=== PATIENT | male | born 1965 | race Caucasian/White ===

== ENCOUNTER 2017-10-26 22:25 | Inpatient (IN) | payer MEDICAID ==
[~2017-10-26] VITALS: Ht 167.6 cm; Wt 80.0 kg
--- NOTE | ~2017-10-26 | CON ---
[place], [place] REPORT OF CONSULTATION NAME: SARAH MULTANI UNIT #: [id number] ROOM: 520 DOCTOR: RENE ENGEL MD BIRTHDATE: [birth year] DOS: 10/27/2017 REASON FOR CONSULTATION: Chest pain. HISTORY OF PRESENT ILLNESS: The patient is a 52-year-old man who states that he has had a long history of recurrent chest pain. He states that the pain "comes and goes." It is sharp and located in his left anterior chest. There is nothing much that he does that makes it better or worse, although he does note that he has been more dyspneic with exertion lately. The patient does have a history of multiple drug abuse. He did drink alcohol in the distant past, but has not done so recently. He has used cocaine in the past as well, but again states that it has been years. He does admit that he snorts heroin and has done this frequently. He has been hospitalized for heroin withdrawal on at least one occasion. The patient states that he has been hospitalized for myocardial infarctions in the past. We were able to get records from the [facility] in [place], [place], where he underwent catheterization on 09/30/2012 and 07/26/2015. The catheterization in 09/2012 showed an ejection fraction of 40%. 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 His left main, circumflex and right coronary arteries were all normal. The LAD had a 20% stenosis. He did have mitral valve prolapse, but no mitral insufficiency. It was felt that he did not have significant coronary artery disease. The catheterization done 07/26/2015 showed a normal left main, circumflex and right coronary artery. He was felt to have very mild LAD disease. The distal circumflex had a 40% stenosis. His ejection fraction was 70%. Once again, it was felt that he did not have a hemodynamically significant coronary artery disease, although I do not have the records, they do mention in their records, a stress test done about a year ago that was "normal." The patient states that yesterday while at rest, he did have severe left anterior chest pain, which was worse than it usually is. It was associated with dyspnea, palpitations, diaphoresis and weakness and therefore, he came into the Emergency Room. Since he has been in the Emergency Room and in the hospital, he has continued to have chest pain, but his electrocardiograms have shown no acute changes. He has sinus rhythm with PACs, but no other acute abnormalities. Troponin levels are measurable but still within normal limits. He refused nitroglycerin because he states that it causes him to have headaches and nausea. He was given morphine IV in the Emergency Room along with 5 mg of IV metoprolol and 1 mg of IV Ativan with some improvement. PAST MEDICAL HISTORY: Includes: 1. Heroin abuse. 2. Remote history of cocaine abuse. 3. Hypertension. 4. Chronic renal insufficiency in the past. The patient denies any history of diabetes or stroke. [place], [place] REPORT OF CONSULTATION NAME: SARAH MULTANI UNIT #: [id number] ROOM: [facility] DOCTOR: RENE ENGEL MD BIRTHDATE: [birth year] MEDICATIONS PRIOR TO ADMISSION: Aspirin 81 mg daily, lorazepam 2 mg b.i.d., metoprolol succinate, unknown dose daily and valsartan, unknown dose daily. ALLERGIES: The patient lists an allergy to nitroglycerin, which causes headache and nausea. REVIEW OF SYSTEMS: The patient denies diplopia or loss of vision. He denies syncope, but he has been lightheaded. He denies fevers or chills. He denies vomiting or nausea. He denies orthopnea or PND. He has had dyspnea with exertion. He does get palpitations and diaphoresis. He denies any recent weight change. He denies hemoptysis or hematemesis. He has had abdominal cramping with bright red blood per rectum. He denies any peripheral edema. He denies heat or cold intolerance. He denies polyuria or polydipsia. Remainder of the review of systems is negative except as noted above. FAMILY HISTORY: The patient's father had diabetes and a heart attack. He at an unknown age. His mother had also diabetes and heart attack and at age 70. SOCIAL HISTORY: The patient recently moved here from [place] to be with his girlfriend. He states that he does not currently drink alcohol or smoke, but he does use heroin. PHYSICAL EXAMINATION: GENERAL: The patient is well-nourished white male. He is awake, alert and oriented. VITAL SIGNS: Pulse is 83 and regular, blood pressure is 178/120. He is afebrile. He weighs 80 kg and has a body mass index 28.5. HEENT: Normocephalic and atraumatic. Extraocular muscles are intact. Sclerae are clear. Pupils equal, round and react to light. The oral mucosa is moist. Tongue is midline. NECK: Supple. He has no jugular distention. Carotids are full. I heard no bruits. He had no neck or supraclavicular masses, no thyromegaly. LUNGS: Respirations are unlabored. CHEST: Clear to auscultation and percussion. She has no presacral edema or chest wall tenderness. CARDIOVASCULAR: His heart has a regular rhythm. He has a fourth heart sound, but no third heart sound or murmur. The PMI is not displaced. There is no precordial heave, lift or thrill. I could not reproduce his pain by palpation of his chest. ABDOMEN: Soft and normally active without masses, organomegaly, bruits or tenderness. EXTREMITIES: Showed no edema. He had no palpable cords or [place] sign. Pedal pulses were easily palpated bilaterally. IMAGING: I reviewed his electrocardiogram, which showed sinus rhythm with PACs and was an otherwise normal tracing. IMPRESSION: [place], [place] REPORT OF CONSULTATION NAME: SARAH MULTANI UNIT #: [id number] ROOM: [facility] DOCTOR: RENE ENGEL MD BIRTHDATE: [birth year] 1. Atypical chest pain. Review of available records indicates that he has had a long history of chest pain, but 2 previous catheterizations have shown no significant coronary artery disease. 2. Essential hypertension. 3. History of heroin abuse and hospitalizations for heroin withdrawal. 4. History of anxiety with panic attacks. PLAN: At this point, I think we should start him on beta sha in addition to the other medicines that have been prescribed to control his blood pressure. We will continue to monitor his electrocardiogram and cardiac biomarkers. Assuming no problems overnight, I would proceed with a pharmacologic stress test within the next 24 hours. Further recommendations will depend upon the results of the stress test. [facility] Cardiology and I thank the hospitalist physicians for asking our advice regarding his care. RENE ENGEL MD CM:CONSTR:REPORT OF CONSULTATION 1122 10/27/17 2259 interface
[2017-10-26 22:25] VITALS: BP 182/132
[2017-10-26] MEDS ORDERED: ATIVAN2 M1 PO (22:30)
[2017-10-26] MEDS ORDERED: TOPROL XL25 MG PO (22:30)
[2017-10-26] MEDS ORDERED: DIOVAN40 MG PO (22:31)
[2017-10-26] MEDS ORDERED: ASPIRIN ADULT L81 M1 PO (22:31)
[2017-10-26 22:40] VITALS: BP 172/127
[2017-10-26 22:44] VITALS: BP 162/95
[2017-10-26 22:50] VITALS: BP 148/106
[2017-10-26 22:53] LABS: ACT PARTIAL THROMBO TIME 21.9 SECONDS (20.8-31.5)
[2017-10-26 23:00] VITALS: BP 132/82
[2017-10-26 23:01] LABS: ALBUMIN 3.3 gm/dl (3.1-4.5); ALKALINE PHOSPHATASE 87 U/L (45-117); BUN 23 mg/dl (7-24); CHLORIDE 105 mmol/L (98-107); CREATININE 1.38 mg/dL (0.70-1.30); POTASSIUM 3.4 mmol/L (3.5-5.1); SGOT/AST 33 IU/L (3-35); SGPT/ALT 27 U/L (12-78); SODIUM 144 mmol/L (136-145); TOTAL PROTEIN 6.9 gm/dL (6.4-8.2)
[2017-10-26 23:02] LABS: BASO # 0.1 10*3/uL (0.0-0.1); BASO % 0.7 % (0.0-1.0); EOS # 0.1 10*3/uL (0.0-0.4); EOS % 1.5 % (1.0-4.0); HEMATOCRIT 40.3 % (42.0-52.0); HEMOGLOBIN 13.8 g/dl (14.0-18.0); LYMPH # 1.9 10*3/uL (1.3-4.4); LYMPH % 28.1 % (27.0-41.0); MEAN CELL VOLUME 93.1 fl (80.0-94.0); MEAN CORPUSCULAR HGB 31.9 pg (27.0-31.0); MEAN CORPUSCULAR HGB CONC 34.2 g/dl (33.0-37.0); MEAN PLATELET VOLUME 11.5 fl (9.6-12.3); MONO # 0.5 10*3/uL (0.1-1.0); NEUT # 4.2 10*3/uL (2.3-7.9); NEUT % 62.4 % (47.0-73.0); PLATELET COUNT AUTOMATED 215 10*3/uL (130-400); RED BLOOD COUNT 4.33 10*6/uL (4.50-5.90); RED CELL DISTRI WIDTH 13.2 % (0-14.5); TROPONIN I 0.023 ng/ml (<0.045); WHITE BLOOD COUNT 6.7 10*3/uL (4.8-10.8)
[2017-10-26 23:18] LABS: BILIRUBIN NEGATIVE (NEGATIVE); BLOOD NEGATIVE (NEGATIVE); CLARITY CLEAR (CLEAR); COLOR YELLOW (YELLOW); GLUCOSE NEGATIVE (NEGATIVE); KETONE NEGATIVE (NEGATIVE); LEUKO ESTERASE NEGATIVE (NEGATIVE); NITRITE NEGATIVE (NEGATIVE); PH 6.5 (5.0-9.0); UROBILINOGEN 0.2 E.U./dl (0.2-1.0)
[2017-10-26 23:27] LABS: URINE AMPHETAMINES < 1000 (1000ng/ml); URINE BARBITURATES < 200 (200ng/ml); URINE BENZODIAZEPINES < 200 (200ng/ml); URINE CANNABINOIDS (THC) < 50 (50ng/ml); URINE COCAINE < 300 (300ng/ml); URINE METHADONE < 300 (300ng/ml); URINE OPIATES < 300 (300ng/ml); URINE PHENCYCLIDINE < 25 (25ng/ml)
[2017-10-26 23:29] LABS: BACTERIA TRACE; WBC 0-2 wbc/hpf (0-5)
[2017-10-26 23:50] VITALS: BP 179/105
[2017-10-27] VITALS (11 sets, daily range): BP systolic 135–180; BP diastolic 88–122
[2017-10-27 05:13] LABS: ALBUMIN 3.5 gm/dl (3.1-4.5); ALKALINE PHOSPHATASE 96 U/L (45-117); BUN 20 mg/dl (7-24); CHLORIDE 105 mmol/L (98-107); CHOLESTEROL 177 mg/dL (<200); CREATININE 1.14 mg/dL (0.70-1.30); FREE T4 0.83 ng/dl (0.76-1.46); HDL CHOLESTEROL 48 mg/dl (40-60); LDL CHOLESTEROL 104 mg/dL (9-159); PHOSPHOROUS 2.1 mg/dL (2.5-4.9); SGOT/AST 25 IU/L (3-35); SGPT/ALT 27 U/L (12-78); SODIUM 141 mmol/L (136-145); TOTAL PROTEIN 6.9 gm/dL (6.4-8.2); TRIGLYCERIDES 123 mg/dl (<150); VLDL CHOLESTEROL 25 mg/dL (6-40)
[2017-10-27 05:19] LABS: THYROID STIM HORMONE (HS) 0.884 uIU/ml (0.358-4.75)
[2017-10-27 06:16] LABS: BASO # 0.1 10*3/uL (0.0-0.1); BASO % 0.8 % (0.0-1.0); EOS # 0.1 10*3/uL (0.0-0.4); EOS % 2.1 % (1.0-4.0); HEMATOCRIT 41.5 % (42.0-52.0); HEMOGLOBIN 14.2 g/dl (14.0-18.0); LYMPH # 1.9 10*3/uL (1.3-4.4); LYMPH % 28.6 % (27.0-41.0); MEAN CELL VOLUME 93.3 fl (80.0-94.0); MEAN CORPUSCULAR HGB 31.9 pg (27.0-31.0); MEAN CORPUSCULAR HGB CONC 34.2 g/dl (33.0-37.0); MEAN PLATELET VOLUME 11.7 fl (9.6-12.3); MONO # 0.5 10*3/uL (0.1-1.0); MONO % 6.8 % (3.0-9.0); NEUT # 4.1 10*3/uL (2.3-7.9); NEUT % 61.1 % (47.0-73.0); PLATELET COUNT AUTOMATED 210 10*3/uL (130-400); RED BLOOD COUNT 4.45 10*6/uL (4.50-5.90); RED CELL DISTRI WIDTH 13.2 % (0-14.5); WHITE BLOOD COUNT 6.6 10*3/uL (4.8-10.8)
[2017-10-27 09:59] LABS: VITAMIN D, 25-HYDROXY 25.2 ng/mL (30-100)
[2017-10-28] VITALS: BP 150/100
[2017-10-28 07:11] LABS: BUN 14 mg/dl (7-24); CHLORIDE 112 mmol/L (98-107); CREATININE 1.09 mg/dL (0.70-1.30); PHOSPHOROUS 2.2 mg/dL (2.5-4.9); POTASSIUM 3.6 mmol/L (3.5-5.1); SODIUM 141 mmol/L (136-145)
[2017-10-28 08:00] VITALS: BP 141/93
== END 2017-10-28 08:37 | disposition left against medical advice (07) | DRG 313 ==
LOC: ED 22:25 → 5E 23:21 → EDHOLD 23:21 → 5E 23:31
PROVIDERS: Emergency Medicine Emergency Medical Services; Internal Medicine; Internal Medicine Hospice and Palliative Medicine
DX: R07.9 Chest pain, unspecified (principal); I25.2 Old myocardial infarction; N17.0 Acute kidney failure with tubular necrosis; I16.1 Hypertensive emergency; R29.6 Repeated falls; E87.6 Hypokalemia; R80.9 Proteinuria, unspecified; E78.5 Hyperlipidemia, unspecified; N18.9 Chronic kidney disease, unspecified; R73.03 Prediabetes; M19.90 Unspecified osteoarthritis, unspecified site; F41.9 Anxiety disorder, unspecified; F41.0 Panic disorder [episodic paroxysmal anxiety]; F11.10 Opioid abuse, uncomplicated; I12.9 Hypertensive chronic kidney disease with stage 1 through stage 4 chronic kidney disease, or unspecified chronic kidney disease; E83.39 Other disorders of phosphorus metabolism; R73.9 Hyperglycemia, unspecified; D64.9 Anemia, unspecified; Z53.21 Procedure and treatment not carried out due to patient leaving prior to being seen by health care provider; E78.00 Pure hypercholesterolemia, unspecified; Z88.8 Allergy status to other drugs, medicaments and biological substances; Z79.899 Other long term (current) drug therapy; Z79.82 Long term (current) use of aspirin; Z90.49 Acquired absence of other specified parts of digestive tract; Z86.711 Personal history of pulmonary embolism; Z82.49 Family history of ischemic heart disease and other diseases of the circulatory system; Z83.3 Family history of diabetes mellitus

== ENCOUNTER 2017-11-08 13:13 | Emergency (ER) | payer MEDICAID ==
[~2017-11-08] VITALS: Ht 167.6 cm; Wt 81.6 kg
[~2017-11-08 13:13] MED LIST: ASPIRIN ADULT L81 M1 PO; ATIVAN2 M1 PO; DIOVAN40 MG PO; TOPROL XL25 MG PO
== END 2017-11-08 14:27 | disposition left against medical advice (07) ==
LOC: ED 13:13
DX: S49.92XA Unspecified injury of left shoulder and upper arm, initial encounter (principal); Z53.21 Procedure and treatment not carried out due to patient leaving prior to being seen by health care provider; Z88.8 Allergy status to other drugs, medicaments and biological substances; Z79.899 Other long term (current) drug therapy; Z79.82 Long term (current) use of aspirin; X58.XXXA Exposure to other specified factors, initial encounter; Y93.89 Activity, other specified; Y92.89 Other specified places as the place of occurrence of the external cause; Y99.8 Other external cause status

== ENCOUNTER 2017-11-12 11:01 | Emergency (ER) | payer MEDICAID ==
[~2017-11-12] VITALS: Ht 167.6 cm; Wt 81.6 kg
[2017-11-12] MEDS ORDERED: LOPRESSOR50 M1 PO (12:41)
[2017-11-12] MEDS ORDERED: DIOVAN40 MG PO (12:41)
[2017-11-12] MEDS ORDERED: ATIVAN1 MG PO (12:44)
[2017-11-12] MEDS ORDERED: NORCO 7.5-3251 EACH PO (12:44)
== END 2017-11-12 14:11 | disposition home or self-care (01) ==
LOC: ED 11:01
DX: S46.912A Strain of unspecified muscle, fascia and tendon at shoulder and upper arm level, left arm, initial encounter (principal); F41.9 Anxiety disorder, unspecified; I10 Essential (primary) hypertension; M19.90 Unspecified osteoarthritis, unspecified site; I12.9 Hypertensive chronic kidney disease with stage 1 through stage 4 chronic kidney disease, or unspecified chronic kidney disease; N18.9 Chronic kidney disease, unspecified; F11.10 Opioid abuse, uncomplicated; E78.5 Hyperlipidemia, unspecified; Z86.711 Personal history of pulmonary embolism; Z98.890 Other specified postprocedural states; Z76.0 Encounter for issue of repeat prescription; Z88.8 Allergy status to other drugs, medicaments and biological substances; Z79.82 Long term (current) use of aspirin; Z79.899 Other long term (current) drug therapy; X50.9XXA Other and unspecified overexertion or strenuous movements or postures, initial encounter; Y93.89 Activity, other specified; Y92.89 Other specified places as the place of occurrence of the external cause; Y99.9 Unspecified external cause status

== ENCOUNTER 2017-11-18 12:04 | Emergency (ER) | payer MEDICAID ==
[~2017-11-18] VITALS: Ht 167.6 cm; Wt 81.6 kg
--- NOTE | ~2017-11-18 | EKG ---
[place], [place] ELECTROCARDIOGRAM REPORT NAME: SARAH MULTANI UNIT #: [id number] ROOM: DOCTOR: EPIPHANY DRAFT REPORT BIRTHDATE: [birth year] [facility] Test Date: 2017-11-18 Test Time: 12:30:14 Pat Name: SARAH MULTANI Department: Room: Gender: Deck Mate: : 1965 Requested By: LAURA AGUILAR Order Number: [id number] Reading MD: Dylan Arriola MD Measurements Intervals [place] Rate: 84 P: NC: QRS: -17 QRSD: 111 T: 25 QT: 399 QTc: 472 Interpretive Statements Junctional rhythm with occasional atrial contractions Probable left ventricular hypertrophy Inferior infarct, old Lateral leads are also involved Electronically Signed On 11-18-2017 13:59:12 PDT by Dylan Arriola MD CM:EKGRPT:ELECTROCARDIOGRAM REPORT 1230 1359 LAURA AGUILAR EPIPHANY DRAFT REPORT LAURA AGUILAR
[~2017-11-18 12:04] MED LIST changes: +ATIVAN1 MG PO; +LOPRESSOR50 M1 PO; +NORCO 7.5-3251 EACH PO
[2017-11-18] MEDS ORDERED: CHLORZOXAZONE500 M2 PO (12:11)
[2017-11-18] MEDS ORDERED: NAPROSYN500 MG PO (12:11)
== END 2017-11-18 12:38 | disposition home or self-care (01) ==
LOC: ED 12:04
DX: G89.29 Other chronic pain (principal); M25.512 Pain in left shoulder; R03.0 Elevated blood-pressure reading, without diagnosis of hypertension; Z88.8 Allergy status to other drugs, medicaments and biological substances; Z79.899 Other long term (current) drug therapy; Z79.82 Long term (current) use of aspirin

== ENCOUNTER 2018-04-07 18:08 | Inpatient (IN) | payer OTHER ==
[2018-04-07] VITALS (17 sets, daily range): BP systolic 115–210; BP diastolic 75–152
[~2018-04-07] VITALS: Ht 165.1 cm; Wt 92.5 kg
--- NOTE | ~2018-04-07 | EKG ---
[place], [place] ELECTROCARDIOGRAM REPORT NAME: SARAH MULTANI UNIT #: [id number] ROOM: [place] [address] DOCTOR: LEILA DRAFT REPORT BIRTHDATE: [birth year] [facility] Test Date: 2018-04-07 Test Time: 18:10:22 Pat Name: SARAH MULTANI Department: Room: [place] [address] Gender: M Transportation Lead: : 1965 Requested By: HERMES TREVIZO Order Number: [id number] Reading MD: Dylan Arriola MD Measurements Intervals [place] Rate: 97 P: 67 MT: 150 QRS: -5 QRSD: 93 T: 44 QT: 356 QTc: 452 Interpretive Statements Sinus rhythm Multiple ventricular premature complexes Inferior infarct, old Compared to ECG 11/18/2017 12:30:14 Ventricular premature complex(es) now present Junctional rhythm no longer present Myocardial infarct finding still present Electronically Signed On 04-07-2018 18:22:14 PST by Dylan Arriola MD CM:EKGRPT:ELECTROCARDIOGRAM REPORT 09 1822 HERMES GERMAN DRAFT REPORT HERMES TREVIZO DO
--- NOTE | ~2018-04-07 | PR ---
[place], [place] PROGRESS NOTE NAME: SARAH MULTANI UNIT #: [id number] ROOM: 428 DOCTOR: RENE ENGEL MD BIRTHDATE: [birth year] DOS: 04/10/2018 CARDIOLOGY PROGRESS NOTE SUBJECTIVE: The patient was seen in the Cardiology Department today on 04/10/2018 just prior to his stress test. He continues to have headache, blurred vision and chest discomfort, which has persisted since his admission. Blood pressure is coming under some better control. Renal functions have remained stable. PHYSICAL EXAMINATION: VITAL SIGNS: On exam today, his pulse is 72 and regular, blood pressure is 142/102. He is afebrile. He weighs 92.5 kg and has a body mass index of 33.9. HEENT: Normocephalic, atraumatic. Extraocular muscles are intact. Sclerae are clear. Pupils are round and react to light. The oral mucosa is moist. Tongue is midline. NECK: Supple. He has no jugular distention. Carotids are full. There are no bruits. He has no neck or supraclavicular masses. LUNGS: Respirations are unlabored. His chest is clear to auscultation and percussion. HEART: His heart has a regular rhythm with an S4 gallop, but no S3 or murmur. EXTREMITIES: Showed no edema. IMPRESSION: 1. Atypical chest pain. 2. Elevated troponin. It is not clear if this is related to an acute renal insufficiency, type 2 infarction from his hypertension or truly due to coronary ischemia. 3. Hypertensive emergency. 4. History of coronary artery disease. Records that are available from [place] showed that a catheterization in 2016 demonstrated no high-grade coronary artery disease. He has never had a percutaneous intervention or bypass. PLAN: We will continue his antihypertensive medications and proceed with a pharmacologic stress test. Further recommendations will depend upon the results of the stress test. I thank the hospitalist physicians for asking our advice regarding his care. [place], [place] PROGRESS NOTE NAME: SARAH MULTANI UNIT #: [id number] ROOM: 428 DOCTOR: RENE ENGEL MD BIRTHDATE: [birth year] RENE ENGEL MD CM:PNTRANS 1152 1923 RENE ENGEL MD 04/11/18 0724 interface
--- NOTE | ~2018-04-07 | EKG ---
[place], [place] ELECTROCARDIOGRAM REPORT NAME: SARAH MULTANI UNIT #: [id number] ROOM: [place] [address] DOCTOR: LEILA DRAFT REPORT BIRTHDATE: [birth year] [facility] Test Date: 2018-04-08 Test Time: 13:24:37 Pat Name: SARAH MULTANI Department: Room: [place] [address] Gender: M Bell Captain: THAIS : 1965 Requested By: RENE ENGEL Order Number: [id number] Reading MD: Rene Engel MD Measurements Intervals [place] Rate: 86 P: 73 SD: 118 QRS: 8 QRSD: 89 T: 49 QT: 372 QTc: 445 Interpretive Statements Sinus rhythm Borderline short SD interval Inferior infarct cannot be ruled out Compared to ECG 04/07/2018 21:15:58 No significant changes Electronically Signed On 04-08-2018 14:45:40 PST by Rene Engel MD CM:EKGRPT:ELECTROCARDIOGRAM REPORT 1324 1445 RENE ENGEL MD EPIPHANY DRAFT REPORT RENE ENGEL MD
--- NOTE | ~2018-04-07 | PR ---
[place], [place] PROGRESS NOTE NAME: SARAH MULTANI UNIT #: [id number] ROOM: 428 DOCTOR: RENE ENGEL MD BIRTHDATE: [birth year] DOS: 04/09/2018 SUBJECTIVE: The patient was seen at his bedside today, 04/09/2018, for followup of his atypical chest pain. The patient states that he continues to have pain in his left chest. It does wax and wane, but there is nothing that he can do that makes it better or worse. As noted, he does have some risk factors for coronary artery disease, but a catheterization 07/26/2015 in [place] showed no significant coronary ischemia. PHYSICAL EXAMINATION: VITAL SIGNS: Today his pulse is 83 and regular, blood pressure is 145/95. He is afebrile. NECK: Supple. He has no jugular distention. Carotids are full. LUNGS: Respirations are unlabored. Chest is clear. HEART: Has a regular rhythm and S4 gallop. ABDOMEN: Benign. EXTREMITIES: Showed no edema. LABORATORY DATA: Hemoglobin is 15.3, white count 8000, platelet count 210,000. Sodium 142, potassium 3.8, BUN has increased to 31 from an admission level of 24, creatinine has increased from 1.47 on admission to 1.76 today. IMPRESSION: 1. Atypical chest pain. The patient continues to have intermittent chest pain with minimal elevation in troponin and minimal EKG changes. 2. Elevated troponin. It is not clear if this is related to acute renal insufficiency, acute, hypertension or truly due to ischemia. 3. Hypertensive emergency. 4. History of coronary artery disease. Records that are available from [place] show that a catheterization in 2016 showed no high-grade coronary artery disease and he has never had a percutaneous intervention or bypass. PLAN: We will continue his antihypertensive regimen today and plan on a pharmacologic stress test within the next 24 hours. Further recommendations will depend upon the results of the stress test. Hopefully, once his blood pressure is controlled, his renal functions will improve as well. I thank the hospitalist physicians for asking our advice regarding his care. [place], [place] PROGRESS NOTE NAME: SARAH MULTANI UNIT #: [id number] ROOM: 428 DOCTOR: RENE ENGEL MD BIRTHDATE: [birth year] RENE ENGEL MD CM:PNTRANS 04 13 RENE ENGEL MD 04/09/182113 interface
--- NOTE | ~2018-04-07 | CON ---
[place], [place] REPORT OF CONSULTATION NAME: SARAH MULTANI UNIT #: [id number] ROOM: [place] [address] DOCTOR: RENE ENGEL MD BIRTHDATE: [birth year] DOS: 04/08/2018 CARDIOLOGY CONSULTATION REASON FOR CONSULTATION: Chest pain. HISTORY OF PRESENT ILLNESS: The patient is a 52-year-old man who recently moved here from [place], [place]. He was previously hospitalized at the [facility] in 10/2017 when he presented with recurrent chest pain, which he described as sharp and in his left anterior chest. At that time, he did have a minimal elevation in troponin. A stress test was planned but the patient signed out against medical advice. He states that he has not seen a physician since then. He does note that he has a history of high blood pressure, but has not had medications for some time because he does not have a physician or insurance. The patient states that for the last few weeks, he has had a constant headache. 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 His systolic blood pressure was over 200, and he was therefore sent to the Emergency Room. In the Emergency Room, he was treated with labetalol, but his blood pressure remained elevated and therefore he was hospitalized. In the hospital, he began to develop pain in his left chest, which radiated into his shoulder and back. It was not associated with diaphoresis or nausea. He did have minimal inferior ST segment elevation and there was a concern that this may represent a non-ST elevation NH. Serial EKGs; however, have shown no further changes and have actually improved. His troponin levels have been mildly elevated at 0.054 on admission, then 0.037, then 0.053, and then 0.040. We were asked to assist in his assessment and care. When he was hospitalized here in 10/2017, we did request records from the hospital in [place] where he had been cared for in the past. This was the [facility] in [place], [place]. Catheterizations were reported from 09/30/2012 and 07/26/2015. 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 His left main circumflex or right coronary arteries were all normal. The LAD had a 20% stenosis. There was no significant mitral insufficiency. The catheterization was repeated on 07/26/2015 for recurrent chest pain. He had a normal left main, circumflex, and right coronary artery. He was felt to have mild LAD disease. The circumflex had a 40% stenosis. The ejection fraction was 70%. Once again, it was felt that he did not have any hemodynamically significant coronary artery disease. In addition, they mentioned in their records that he had a stress test done in 2017, which was "normal" but I do not have that actual report available to me. PAST MEDICAL HISTORY: Includes: 1. Drug abuse including heroin, alcohol, and cocaine. The patient is now with a small child and another one on the way and states that he has been clean and sober for several years. He does not currently consume any drugs of abuse, cigarettes, or alcohol. 2. History of hypertension, which has not recently been managed. [place], [place] REPORT OF CONSULTATION NAME: SARAH MULTANI UNIT #: [id number] ROOM: [place] [address] DOCTOR: RENE ENGEL MD BIRTHDATE: [birth year] 3. Chronic renal insufficiency. 4. The patient denies any history of diabetes or stroke. MEDICATIONS PRIOR TO ADMISSION: The patient states that he has prescriptions for aspirin, lorazepam, metoprolol, and valsartan, but has not taken any prescription medications in several months because of lack of insurance. ALLERGIES: THE PATIENT LISTS AN ALLERGY TO NITROGLYCERIN, WHICH HE STATES CAUSES HEADACHES AND NAUSEA. REVIEW OF SYSTEMS: The patient denies diplopia or loss of vision. He states that he has had severe headache, which he describes as a migraine for several weeks. He does have some lightheadedness and nausea. He denies any vomiting. He denies orthopnea or PND. He does have dyspnea with exertion and does note that his ankles have been edematous lately. He denies any palpitations and has not been diaphoretic. He denies any recent weight change. He denies cough, hemoptysis, or hematemesis. He has had abdominal cramping in the past. He denies any blood in his stools or urine. He denies heat or cold intolerance. He denies polyuria or polydipsia. Remainder of the review of systems is negative except as noted above. FAMILY HISTORY: The patient's father had diabetes and a heart attack. He at an unknown age. His mother also had diabetes and a heart attack and at age 70. SOCIAL HISTORY: The patient moved here from [place] within the last 6 months. He does have a history of alcohol and drug abuse in the past, but states that he has been clean and sober for quite some time now. PHYSICAL EXAMINATION: GENERAL: The patient is a well-nourished man who is awake, alert and oriented. VITAL SIGNS: Pulse is 84 and regular, blood pressure is 172/111. He is afebrile. He weighs 92.5 kg and has a body mass index of 33.9. HEENT: Normocephalic and atraumatic. Extraocular muscles are intact. Sclerae are clear. Pupils equal, round and reactive to light. The oral mucosa is moist. Tongue is midline. NECK: Supple. He has no jugular distention or hepatojugular reflux. Carotids are full. He has no bruits. He has no neck or supraclavicular masses and no thyromegaly. LUNGS: Respirations are unlabored. His chest is clear to auscultation and percussion. He has no presacral edema or chest wall tenderness. CARDIOVASCULAR: His heart has a regular rhythm. He has a fourth heart sound, but no third heart sound or murmur. The PMI is not displaced. There is no precordial heave, lift or thrill. ABDOMEN: Soft and normally active without masses, organomegaly or bruits. EXTREMITIES: Showed no edema. Peripheral pulses are diminished, but palpable in the feet bilaterally. LABORATORY DATA: I reviewed his electrocardiograms, which do show inferior [place], [place] REPORT OF CONSULTATION NAME: SARAH MULTANI UNIT #: [id number] ROOM: [place] [address] DOCTOR: RENE ENGEL MD BIRTHDATE: [birth year] Q-waves. One EKG did show mild ST elevation in the inferior leads, but a subsequent EKG was improved. Troponins are minimally elevated as noted above. Hemoglobin is 15.3, white count 8000, platelet count 210,000. Sodium 142, potassium 3.8, BUN 26, creatinine 1.69. His creatinine during his recent hospitalization in 10/2017 was 1.38. Urine drug screen was positive for opiates, but that was after he had been given Dilaudid in the Emergency Room. Chest x-ray showed no consolidation or atelectasis. Head CT, there was no acute intracranial finding. IMPRESSION: 1. Atypical chest pain. The patient has had several hours of intermittent chest pain with minimal elevation in troponin and minimal EKG changes. It is not clear if the troponin elevations are related to his acute renal insufficiency, acute hypertension, or truly due to ischemia. 2. Hypertensive emergency. 3. Reported history of coronary artery disease. We do have some records from his previous evaluations and no high-grade coronary artery disease was found. He states he has never had a stent. PLAN: We will work to control his blood pressure over the weekend. We will avoid PEDRO inhibitors and angiotensin receptor blockers because of his acute renal insufficiency. Once his blood pressure has been controlled, we will proceed with a screening stress test. Further recommendations will depend upon the results of the stress test. In the meantime, the patient was strongly advised to get a study physician to help manage his blood pressure and other risk factors. [facility] Cardiology and I thank the hospitalist physicians at [facility] for asking our advice regarding his care. RENE ENGEL MD CM:CONSTR:REPORT OF CONSULTATION 1354 04/08/18 8889 interface
--- NOTE | ~2018-04-07 | EKG ---
[place], [place] ELECTROCARDIOGRAM REPORT NAME: SARAH MULTANI UNIT #: [id number] ROOM: [place] [address] DOCTOR: LEILA DRAFT REPORT BIRTHDATE: [birth year] [facility] Test Date: 2018-04-07 Test Time: 21:15:58 Pat Name: SARAH MULTANI Department: Room: [place] [address] Gender: M Envelope Sealer: SS RESP : 1965 Requested By: YAZMIN AJ Order Number: [id number] Reading MD: Dylan Arriola MD Measurements Intervals [place] Rate: 87 P: 52 MI: 110 QRS: 13 QRSD: 92 T: 47 QT: 379 QTc: 456 Interpretive Statements Sinus rhythm Borderline short MI interval Borderline ST elevation, inferior leads Compared to earlier ECG this date, ST (T wave) deviation now present Myocardial infarct finding still present Electronically Signed On 04-07-2018 18:25:19 PST by Dylan Arriola MD CM:EKGRPT:ELECTROCARDIOGRAM REPORT 14 24 YAZMIN GERMAN DRAFT REPORT YAZMIN AJ DO
--- NOTE | ~2018-04-07 | EKG ---
[place], [place] ELECTROCARDIOGRAM REPORT NAME: SARAH MULTANI UNIT #: [id number] ROOM: [place] [address] DOCTOR: LEILA DRAFT REPORT BIRTHDATE: [birth year] [facility] Test Date: 2018-04-07 Test Time: 19:45:03 Pat Name: SARAH MULTANI Department: Room: [place] [address] Gender: M Chart Picker: SS RESP : 1965 Requested By: HERMES TREVIZO Order Number: [id number] Reading MD: Dylan Arriola MD Measurements Intervals [place] Rate: 90 P: 34 MN: 157 QRS: 4 QRSD: 90 T: 28 QT: 361 QTc: 442 Interpretive Statements Sinus rhythm Compared to earlier ECG this date, PVCs are no longer present Myocardial infarct finding no longer present Electronically Signed On 04-07-2018 18:23:58 PST by Dylan Arriola MD CM:EKGRPT:ELECTROCARDIOGRAM REPORT 44 182 HERMES GERMAN DRAFT REPORT HERMES TREVIZO DO
--- NOTE | ~2018-04-07 | EKG ---
[place], [place] ELECTROCARDIOGRAM REPORT NAME: SARAH MULTANI UNIT #: [id number] ROOM: [place] [address] DOCTOR: LEILA DRAFT REPORT BIRTHDATE: [address] [facility] Test Date: 2018-04-08 Test Time: 01:00:39 Pat Name: SARAH MULTANI Department: Room: [place] [address] Gender: M Acute Care Nurse Practitioner: : 1965 Requested By: HERMES TREVIZO Order Number: [id number] Reading MD: Dylan Arriola MD Measurements Intervals [place] Rate: 88 P: 53 OR: 143 QRS: 12 QRSD: 91 T: 31 QT: 363 QTc: 440 Interpretive Statements Sinus rhythm Baseline wander in lead(s) V1 Compared to ECG 04/07/2018 21:15:58 ST (T wave) deviation no longer present Myocardial infarct finding no longer present Electronically Signed On 04-08-2018 14:33:41 PST by Dylan Arriola MD CM:EKGRPT:ELECTROCARDIOGRAM REPORT [id number] HERMES GERMAN DRAFT REPORT HERMES TREVIZO DO
[~2018-04-07 18:08] MED LIST changes: +CHLORZOXAZONE500 M2 PO; +NAPROSYN500 MG PO
[2018-04-07 18:41] LABS: BASO # 0.1 10*3/uL (0.0-0.1); BASO % 0.7 % (0.0-1.0); EOS % 0.5 % (1.0-4.0); HEMOGLOBIN 16.4 g/dl (14.0-18.0); LYMPH # 2.2 10*3/uL (1.3-4.4); LYMPH % 25.4 % (27.0-41.0); MEAN CORPUSCULAR HGB 33.5 pg (27.0-31.0); MEAN CORPUSCULAR HGB CONC 36.4 g/dl (33.0-37.0); MEAN PLATELET VOLUME 11.4 fl (9.6-12.3); MONO # 0.5 10*3/uL (0.1-1.0); MONO % 5.7 % (3.0-9.0); NEUT # 5.8 10*3/uL (2.3-7.9); NEUT % 66.2 % (47.0-73.0); PLATELET COUNT AUTOMATED 195 10*3/uL (130-400); RED BLOOD COUNT 4.89 10*6/uL (4.50-5.90); WHITE BLOOD COUNT 8.7 10*3/uL (4.8-10.8)
[2018-04-07 19:10] LABS: ACT PARTIAL THROMBO TIME 23.1 SECONDS (20.8-31.5)
[2018-04-07 19:16] LABS: LIPASE 209 U/L (73-393)
[2018-04-07 19:19] LABS: ALBUMIN 3.5 gm/dl (3.1-4.5); ALKALINE PHOSPHATASE 57 U/L (45-117); BUN 24 mg/dl (7-24); CHLORIDE 108 mmol/L (98-107); CREATININE 1.47 mg/dL (0.70-1.30); POTASSIUM 3.1 mmol/L (3.5-5.1); SGOT/AST 25 IU/L (3-35); SGPT/ALT 26 U/L (12-78); SODIUM 142 mmol/L (136-145); TOTAL PROTEIN 7.4 gm/dL (6.4-8.2)
[2018-04-07 19:23] LABS: TROPONIN I 0.054 ng/ml (<0.045)
[2018-04-08] VITALS (8 sets, daily range): BP systolic 130–172; BP diastolic 80–119
[2018-04-08 03:00] LABS: BASO # 0.1 10*3/uL (0.0-0.1); BASO % 0.9 % (0.0-1.0); EOS # 0.1 10*3/uL (0.0-0.4); HEMATOCRIT 42.9 % (42.0-52.0); HEMOGLOBIN 15.3 g/dl (14.0-18.0); LYMPH # 1.8 10*3/uL (1.3-4.4); LYMPH % 22.6 % (27.0-41.0); MEAN CELL VOLUME 93.5 fl (80.0-94.0); MEAN CORPUSCULAR HGB 33.3 pg (27.0-31.0); MEAN CORPUSCULAR HGB CONC 35.7 g/dl (33.0-37.0); MEAN PLATELET VOLUME 10.5 fl (9.6-12.3); MONO # 0.4 10*3/uL (0.1-1.0); MONO % 4.4 % (3.0-9.0); NEUT # 5.6 10*3/uL (2.3-7.9); NEUT % 69.8 % (47.0-73.0); PLATELET COUNT AUTOMATED 210 10*3/uL (130-400); RED BLOOD COUNT 4.59 10*6/uL (4.50-5.90); RED CELL DISTRI WIDTH 13.3 % (0-14.5)
[2018-04-08 03:11] LABS: ACT PARTIAL THROMBO TIME 45.1 SECONDS (20.8-31.5)
[2018-04-08 03:16] LABS: ALBUMIN 3.2 gm/dl (3.1-4.5); CREATININE 1.69 mg/dL (0.70-1.30); PHOSPHOROUS 3.5 mg/dL (2.5-4.9); POTASSIUM 3.8 mmol/L (3.5-5.1); TOTAL PROTEIN 6.9 gm/dL (6.4-8.2)
[2018-04-08 03:18] LABS: FREE T4 0.77 ng/dl (0.76-1.46)
[2018-04-08 03:22] LABS: THYROID STIM HORMONE (HS) 2.63 uIU/ml (0.358-4.75)
[2018-04-08 05:09] LABS: URINE AMPHETAMINES < 1000 (1000ng/ml); URINE BARBITURATES < 200 (200ng/ml); URINE BENZODIAZEPINES < 200 (200ng/ml); URINE CANNABINOIDS (THC) < 50 (50ng/ml); URINE COCAINE < 300 (300ng/ml); URINE METHADONE < 300 (300ng/ml); URINE OPIATES > 300 (300ng/ml)
[2018-04-08 05:12] LABS: URINE PHENCYCLIDINE < 25 (25ng/ml)
[2018-04-08 06:44] LABS: TROPONIN I 0.04 ng/ml (<0.045)
[2018-04-08 06:52] LABS: VITAMIN D, 25-HYDROXY 19.4 ng/mL (30-100)
[2018-04-08] MEDS ORDERED: METOPROLOL TART50 M1 PO (09:05)
[2018-04-08] MEDS ORDERED: DIOVAN80 M1 PO (09:06)
[2018-04-09] VITALS: BP 142/82
[2018-04-09 04:00] VITALS: BP 134/85
[2018-04-09 05:23] LABS: CREATININE 1.76 mg/dL (0.70-1.30); POTASSIUM 3.8 mmol/L (3.5-5.1)
[2018-04-09 08:00] VITALS: BP 142/90
[2018-04-09 12:29] VITALS: BP 148/101
[2018-04-09 16:00] VITALS: BP 145/95
[2018-04-09 20:00] VITALS: BP 166/116
[2018-04-10] VITALS: BP 155/94
[2018-04-10 08:15] VITALS: BP 142/102
[2018-04-10 08:43] LABS: CREATININE 1.63 mg/dL (0.70-1.30); POTASSIUM 4.1 mmol/L (3.5-5.1)
[2018-04-10] MEDS ORDERED: ATORVASTATIN CA40 M1 PO (15:08)
[2018-04-10] MEDS ORDERED: HYDRALAZINE HYD50 MG PO (15:08)
[2018-04-10] MEDS ORDERED: METOPROLOL TART50 M1 PO ×2 (15:08→15:12)
== END 2018-04-10 15:40 | disposition home or self-care (01) | DRG 280 ==
LOC: ED 18:08 → EDHOLD 20:17 → ICCU 20:40 → 4E 04-09 13:44
PROVIDERS: Emergency Medicine; Internal Medicine; Student in an Organized Health Care Education/Training Program
PROC: 3E073KZ Introduction of Other Diagnostic Substance into Coronary Artery, Percutaneous Approach (ICD-10-PCS; principal; 2018-04-10)
PROC: 4A02XM4 Measurement of Cardiac Total Activity, External Approach (ICD-10-PCS; principal; 2018-04-10)
DX: I21.4 Non-ST elevation (NSTEMI) myocardial infarction (principal); N17.0 Acute kidney failure with tubular necrosis; I16.1 Hypertensive emergency; I50.32 Chronic diastolic (congestive) heart failure; I13.0 Hypertensive heart and chronic kidney disease with heart failure and stage 1 through stage 4 chronic kidney disease, or unspecified chronic kidney disease; E87.6 Hypokalemia; E87.8 Other disorders of electrolyte and fluid balance, not elsewhere classified; M19.90 Unspecified osteoarthritis, unspecified site; E55.9 Vitamin D deficiency, unspecified; I25.110 Atherosclerotic heart disease of native coronary artery with unstable angina pectoris; E66.9 Obesity, unspecified; E78.5 Hyperlipidemia, unspecified; N18.9 Chronic kidney disease, unspecified; R73.9 Hyperglycemia, unspecified; F41.9 Anxiety disorder, unspecified; I25.10 Atherosclerotic heart disease of native coronary artery without angina pectoris; I25.2 Old myocardial infarction; Z86.711 Personal history of pulmonary embolism; Z83.3 Family history of diabetes mellitus; Z79.82 Long term (current) use of aspirin; Z79.899 Other long term (current) drug therapy; Z82.49 Family history of ischemic heart disease and other diseases of the circulatory system; Z88.8 Allergy status to other drugs, medicaments and biological substances; Z68.33 Body mass index [BMI] 33.0-33.9, adult

== ENCOUNTER → 2018-04-25 | Outpatient (CLI) | payer OTHER ==
[~2018-04-25] MED LIST changes: +ATORVASTATIN CA40 M1 PO; +DIOVAN80 M1 PO; +HYDRALAZINE HYD50 MG PO; +HYDROXYZINE PAM25 M1 PO; +LISINOPRIL20 MG PO; +METOPROLOL TART50 M1 PO; +TOPIRAMATE25 M2 PO
[2018-04-25 11:58] LABS: ALBUMIN 3.4 gm/dl (3.1-4.5); CREATININE 1.58 mg/dL (0.70-1.30); POTASSIUM 4.1 mmol/L (3.5-5.1)
== END | disposition home or self-care (01) ==
LOC: RESCLI 04:53
PROVIDERS: Internal Medicine
DX: G43.009 Migraine without aura, not intractable, without status migrainosus (principal); R10.11 Right upper quadrant pain; H53.8 Other visual disturbances; I12.9 Hypertensive chronic kidney disease with stage 1 through stage 4 chronic kidney disease, or unspecified chronic kidney disease; N18.3 Chronic kidney disease, stage 3 (moderate); M25.562 Pain in left knee; E78.5 Hyperlipidemia, unspecified; I25.10 Atherosclerotic heart disease of native coronary artery without angina pectoris; M19.91 Primary osteoarthritis, unspecified site; Z88.8 Allergy status to other drugs, medicaments and biological substances; Z79.899 Other long term (current) drug therapy

== ENCOUNTER → 2018-05-11 | Outpatient (CLI) | payer OTHER | END | disposition home or self-care (01) | LOC: US 06:22 | DX: R10.11 Right upper quadrant pain (principal); K43.0 Incisional hernia with obstruction, without gangrene; I10 Essential (primary) hypertension; G43.009 Migraine without aura, not intractable, without status migrainosus; H53.8 Other visual disturbances ==

== ENCOUNTER → 2018-05-16 | Outpatient (CLI) | payer OTHER | END | disposition home or self-care (01) | LOC: RESCLI 01:39 | DX: I13.0 Hypertensive heart and chronic kidney disease with heart failure and stage 1 through stage 4 chronic kidney disease, or unspecified chronic kidney disease (principal); I50.32 Chronic diastolic (congestive) heart failure; N18.3 Chronic kidney disease, stage 3 (moderate); E78.5 Hyperlipidemia, unspecified; I25.10 Atherosclerotic heart disease of native coronary artery without angina pectoris; M17.12 Unilateral primary osteoarthritis, left knee; G43.109 Migraine with aura, not intractable, without status migrainosus; F41.9 Anxiety disorder, unspecified; G43.009 Migraine without aura, not intractable, without status migrainosus; Z79.899 Other long term (current) drug therapy; Z88.8 Allergy status to other drugs, medicaments and biological substances ==

== ENCOUNTER → 2018-05-26 | Outpatient (CLI) | payer OTHER | END | disposition home or self-care (01) | LOC: RESCLI 08:42 | DX: F41.9 Anxiety disorder, unspecified (principal); H60.502 Unspecified acute noninfective otitis externa, left ear; I13.0 Hypertensive heart and chronic kidney disease with heart failure and stage 1 through stage 4 chronic kidney disease, or unspecified chronic kidney disease; I50.9 Heart failure, unspecified; N18.3 Chronic kidney disease, stage 3 (moderate); I25.10 Atherosclerotic heart disease of native coronary artery without angina pectoris; E78.5 Hyperlipidemia, unspecified; M19.90 Unspecified osteoarthritis, unspecified site; Z79.899 Other long term (current) drug therapy; Z88.8 Allergy status to other drugs, medicaments and biological substances ==

== ENCOUNTER 2018-06-02 15:08 | Emergency (ER) | payer OTHER ==
--- NOTE | ~2018-06-02 | EKG ---
[place], [place] ELECTROCARDIOGRAM REPORT NAME: SARAH MULTANI UNIT #: [id number] ROOM: DOCTOR: EPIPHANY DRAFT REPORT BIRTHDATE: [birth year] [facility] Test Date: 2018-06-02 Test Time: 15:33:49 Pat Name: SARAH MULTANI Department: Room: Gender: [employer] Operator: Fabián Garcia : 1965 Requested By: LAURA AGUILAR Order Number: [id number] Reading MD: Santhosh Jennings MD Measurements Intervals [place] Rate: 74 P: 17 VA: 147 QRS: 9 QRSD: 92 T: 42 QT: 413 QTc: 459 Interpretive Statements Sinus rhythm Compared to ECG 04/22/2018 15:34:17 Atrial premature complex(es) no longer present poor R wave progression anterior leads Electronically Signed On 06-04-2018 4:43:03 PST by Santhosh Jennings MD CM:EKGRPT:ELECTROCARDIOGRAM REPORT [id number] LAURA AGUILAR EPIPHANY DRAFT REPORT LAURA AGUILAR
[2018-06-02 15:33] LABS: BASO # 0.1 10*3/uL (0.0-0.1); BASO % 0.6 % (0.0-1.0); EOS # 0.1 10*3/uL (0.0-0.4); EOS % 0.7 % (1.0-4.0); HEMATOCRIT 42.3 % (42.0-52.0); LYMPH # 1.7 10*3/uL (1.3-4.4); LYMPH % 19.2 % (27.0-41.0); MEAN CELL VOLUME 97.2 fl (80.0-94.0); MEAN CORPUSCULAR HGB 34.5 pg (27.0-31.0); MEAN CORPUSCULAR HGB CONC 35.5 g/dl (33.0-37.0); MEAN PLATELET VOLUME 10.9 fl (9.6-12.3); MONO # 0.3 10*3/uL (0.1-1.0); MONO % 3.8 % (3.0-9.0); NEUT # 6.3 10*3/uL (2.3-7.9); NEUT % 72.7 % (47.0-73.0); PLATELET COUNT AUTOMATED 212 10*3/uL (130-400); RED BLOOD COUNT 4.35 10*6/uL (4.50-5.90); RED CELL DISTRI WIDTH 13.2 % (0-14.5); WHITE BLOOD COUNT 8.6 10*3/uL (4.8-10.8)
[2018-06-02 15:50] LABS: ACETAMINOPHEN (TYLENOL) < 5.0 ug/ml (10-30); ALBUMIN 3.2 gm/dl (3.1-4.5); ALKALINE PHOSPHATASE 60 U/L (45-117); BUN 26 mg/dl (7-24); CHLORIDE 107 mmol/L (98-107); CREATININE 1.84 mg/dL (0.70-1.30); ETHYL ALCOHOL < 3.0 mg/dl (<3); POTASSIUM 3.6 mmol/L (3.5-5.1); SGOT/AST 26 IU/L (3-35); SGPT/ALT 29 U/L (12-78); SODIUM 140 mmol/L (136-145); TOTAL PROTEIN 6.9 gm/dL (6.4-8.2)
[2018-06-02 15:59] LABS: TROPONIN I 0.054 ng/ml (<0.045)
[2018-06-02 16:09] LABS: BILIRUBIN NEGATIVE (NEGATIVE); BLOOD TRACE-INTACT (NEGATIVE); CLARITY CLOUDY (CLEAR); COLOR YELLOW (YELLOW); GLUCOSE NEGATIVE (NEGATIVE); KETONE NEGATIVE (NEGATIVE); LEUKO ESTERASE NEGATIVE (NEGATIVE); NITRITE NEGATIVE (NEGATIVE); SPECIFIC GRAVITY >= 1.030 (1.005-1.030); UROBILINOGEN 0.2 E.U./dl (0.2-1.0)
[2018-06-02 16:17] LABS: URINE AMPHETAMINES < 1000 (1000ng/ml); URINE BARBITURATES < 200 (200ng/ml); URINE BENZODIAZEPINES < 200 (200ng/ml); URINE CANNABINOIDS (THC) < 50 (50ng/ml); URINE COCAINE < 300 (300ng/ml); URINE METHADONE < 300 (300ng/ml); URINE OPIATES < 300 (300ng/ml); URINE PHENCYCLIDINE < 25 (25ng/ml)
[2018-06-02 16:23] LABS: BACTERIA 2+; COARSE GRANULAR CAST 0-2; MUCOUS TRACE
== END 2018-06-02 18:24 | disposition left against medical advice (07) ==
LOC: ED 15:08
PROVIDERS: Nurse Practitioner Family
DX: T40.1X1A Poisoning by heroin, accidental (unintentional), initial encounter (principal); R40.20 Unspecified coma; R11.10 Vomiting, unspecified; R79.89 Other specified abnormal findings of blood chemistry; Z88.8 Allergy status to other drugs, medicaments and biological substances; Z79.899 Other long term (current) drug therapy; Z79.82 Long term (current) use of aspirin; Y92.89 Other specified places as the place of occurrence of the external cause

== ENCOUNTER → 2018-06-06 | Outpatient (CLI) | payer OTHER | END | disposition home or self-care (01) | LOC: RESCLI 01:51 | DX: I13.0 Hypertensive heart and chronic kidney disease with heart failure and stage 1 through stage 4 chronic kidney disease, or unspecified chronic kidney disease (principal); N18.3 Chronic kidney disease, stage 3 (moderate); I50.32 Chronic diastolic (congestive) heart failure; R68.89 Other general symptoms and signs; E78.5 Hyperlipidemia, unspecified; I25.10 Atherosclerotic heart disease of native coronary artery without angina pectoris; F41.9 Anxiety disorder, unspecified; G43.009 Migraine without aura, not intractable, without status migrainosus; M19.90 Unspecified osteoarthritis, unspecified site; Z79.899 Other long term (current) drug therapy; Z88.8 Allergy status to other drugs, medicaments and biological substances ==

== ENCOUNTER 2023-02-13 19:19 | Emergency (ER) | payer OTHER ==
[~2023-02-13] VITALS: Ht 172.7 cm; Wt 93.0 kg
[2023-02-13] MEDS ORDERED: VISTARIL25 MG PO (21:41)
== END 2023-02-13 21:49 | disposition home or self-care (01) ==
LOC: ED 19:19
DX: M25.511 Pain in right shoulder (principal); M54.50 Low back pain, unspecified; I10 Essential (primary) hypertension; F41.9 Anxiety disorder, unspecified; I25.2 Old myocardial infarction; E78.00 Pure hypercholesterolemia, unspecified; Z88.8 Allergy status to other drugs, medicaments and biological substances; Z95.5 Presence of coronary angioplasty implant and graft; Z98.890 Other specified postprocedural states; F10.10 Alcohol abuse, uncomplicated; F14.10 Cocaine abuse, uncomplicated; F19.10 Other psychoactive substance abuse, uncomplicated

== ENCOUNTER → 2023-07-13 | Outpatient (CLI) | payer OTHER ==
[~2023-07-13] MED LIST changes: +VISTARIL25 MG PO
[2023-07-13 15:51] LABS: BASO # 0.1 10*3/uL (0.0-0.1); BASO % 0.8 % (0.0-1.0); EOS # 0.1 10*3/uL (0.0-0.4); EOS % 2.1 % (1.0-4.0); HEMATOCRIT 38.9 % (42.0-52.0); LYMPH # 1.7 10*3/uL (1.3-4.4); LYMPH % 27.2 % (27.0-41.0); MEAN CELL VOLUME 96.3 fl (80.0-94.0); MEAN CORPUSCULAR HGB 31.9 pg (27.0-31.0); MEAN CORPUSCULAR HGB CONC 33.2 g/dl (33.0-37.0); MEAN PLATELET VOLUME 10.5 fl (9.6-12.3); MONO # 0.4 10*3/uL (0.1-1.0); MONO % 7.1 % (3.0-9.0); NEUT # 3.8 10*3/uL (2.3-7.9); NEUT % 62.2 % (47.0-73.0); PLATELET COUNT AUTOMATED 260 10*3/uL (130-400); RED BLOOD COUNT 4.04 10*6/uL (4.50-5.90); RED CELL DISTRI WIDTH 13.7 % (0-14.5); WHITE BLOOD COUNT 6.2 10*3/uL (4.8-10.8)
[2023-07-13 16:10] LABS: URINE CREATININE RANDOM 231.83 mg/dL
[2023-07-13 16:31] LABS: POTASSIUM 4.4 mmol/L (3.4-5.1); TOTAL PROTEIN 7.2 gm/dL (6.0-8.0)
[2023-07-14 09:08] LABS: HBSAG Negative (Negative); HEP B CORE AB, IGM Negative (Negative); HEPATITIS C ANTIBODY Non Reactive (Non Reactive)
== END | disposition home or self-care (01) ==
LOC: LAB 15:16
PROVIDERS: ATTEND Nurse Practitioner Family
DX: Z11.4 Encounter for screening for human immunodeficiency virus [HIV] (principal); I12.9 Hypertensive chronic kidney disease with stage 1 through stage 4 chronic kidney disease, or unspecified chronic kidney disease; N18.4 Chronic kidney disease, stage 4 (severe)

== ENCOUNTER 2024-04-07 11:55 | Inpatient (IN) | payer OTHER ==
[~2024-04-07] VITALS: Ht 167.6 cm; Wt 102.8 kg
[2024-04-07 12:06] VITALS: BP 152/58
[2024-04-07] MEDS ORDERED: LORazepam 1 MG TAB PO ONE ×2 (12:25→17:15)
[2024-04-07 12:39] LABS: BASO # 0.1 10*3/uL (0.0-0.1); EOS % 0.7 % (1.0-4.0); HEMATOCRIT 37.2 % (42.0-52.0); MEAN CELL VOLUME 94.2 fl (80.0-94.0); MEAN CORPUSCULAR HGB 31.4 pg (27.0-31.0); MEAN CORPUSCULAR HGB CONC 33.3 g/dl (33.0-37.0); MEAN PLATELET VOLUME 10.3 fl (9.6-12.3); MONO # 0.7 10*3/uL (0.1-1.0); MONO % 11.2 % (3.0-9.0); NEUT # 4.4 10*3/uL (2.3-7.9); NEUT % 74.3 % (47.0-73.0); PLATELET COUNT AUTOMATED 192 10*3/uL (130-400); RED BLOOD COUNT 3.95 10*6/uL (4.50-5.90); RED CELL DISTRI WIDTH 13.4 % (0-14.5)
[2024-04-07 13:01] LABS: POTASSIUM 4.3 mmol/L (3.4-5.1); TOTAL PROTEIN 7.9 gm/dL (6.0-8.0)
[2024-04-07] MEDS ORDERED: Enoxaparin Sodium 80 MG/0.8 ML SYR SC ONE (13:20)
[2024-04-07] MEDS ORDERED: ASPIRIN, CHEWABLE 81 MG TAB PO ONE (13:20)
[2024-04-07] MEDS ORDERED: ACETAMINOPHEN 325 MG TAB PO ONE (13:20)
[2024-04-07] MEDS ORDERED: TRAMADOL HCL50 MG PO (13:35)
[2024-04-07] MEDS ORDERED: APRESOLINE25 MG PO (13:35)
[2024-04-07] MEDS ORDERED: LEADER NATUR1000 MCG PO (13:36)
[2024-04-07] MEDS ORDERED: METOPROLOL SUCC50 M1 PO (13:37)
[2024-04-07] MEDS ORDERED: FOSINOPRIL40 MG PO (13:37)
[2024-04-07] MEDS ORDERED: [UNRECOGNIZED DRUG - OTHER] T (13:59)
[2024-04-07] MEDS ORDERED: MORPHINE Sulfate 2 MG/ML SYR IV ONE (15:00)
[2024-04-07 15:05] VITALS: BP 114/69
[2024-04-07] MEDS ORDERED: FUROSEMIDE 20 MG/2 ML VIAL IV ONE ×2 (15:35→16:30)
[2024-04-07] MEDS ORDERED: ACETAMINOPHEN 325 MG TAB PO PRN (16:15)
[2024-04-07] MEDS ORDERED: BISACODYL 5 MG TAB PO PRN (16:15)
[2024-04-07 16:40] VITALS: BP 109/65
[2024-04-07] MEDS ORDERED: hydrOXYzine pamoate 25 MG CAP PO PRN (16:45)
[2024-04-07] MEDS ORDERED: Magnesium Hydroxide 30 ML UDC PO PRN (17:15)
[2024-04-07] MEDS ORDERED: Acetaminophen/Hydrocodone 5 MG/325 MG TABLET PO PRN (17:15)
[2024-04-07] MEDS ORDERED: MORPHINE Sulfate 2 MG/ML SYR IV PRN (17:15)
[2024-04-07] MEDS ORDERED: NITROGLYCERIN 1 IN PACKET T ONE (17:15)
[2024-04-07] MEDS ORDERED: Ondansetron Hydrochloride 4 MG/2 ML VIAL IV PRN (17:15)
[2024-04-07] MEDS ORDERED: BISACODYL 10 MG SUPP R PRN (17:15)
[2024-04-07] MEDS ORDERED: ACETAMINOPHEN 650 MG SUPP R PRN (17:15)
[2024-04-07 17:46] VITALS: BP 114/73
[2024-04-07 18:00] VITALS: BP 107/71
[2024-04-07 20:00] VITALS: BP 121/73
[2024-04-07] MEDS ORDERED: LIDOCAINE 1 EA PATCH T SCH (22:00)
[2024-04-07] MEDS ORDERED: Enoxaparin Sodium 100 MG/ML SYR SC SCH (22:00)
[2024-04-07] MEDS ORDERED: METOPROLOL SUCCINATE XR 50 MG TAB PO SCH (22:00)
[2024-04-07] MEDS ORDERED: ATORVASTATIN CALCIUM 40 MG TABLET PO SCH (22:00)
[2024-04-07] MEDS ORDERED: hydrALAZINE hydrochloride 25 MG TAB PO SCH (22:00)
[2024-04-08] VITALS: BP 118/63
[2024-04-08] MEDS ORDERED: Pantoprazole Sodium 40 MG TAB PO SCH (06:00)
[2024-04-08 06:35] LABS: URINE AMPHETAMINES Negative (1000ng/ml); URINE BARBITURATES Negative (200ng/ml); URINE BENZODIAZEPINES Negative (200ng/ml); URINE CANNABINOIDS (THC) Negative (50ng/ml); URINE COCAINE Negative (300ng/ml); URINE METHADONE Positive (300ng/ml); URINE OPIATES Positive (300ng/ml); URINE PHENCYCLIDINE Negative (25ng/ml)
[2024-04-08 06:42] LABS: FREE T4 0.71 ng/dl (0.89-1.76); POTASSIUM 4.1 mmol/L (3.4-5.1)
[2024-04-08 07:33] LABS: HEMATOCRIT 35.2 % (42.0-52.0); MANUAL DIFF REFLEX YES; MEAN CELL VOLUME 95.1 fl (80.0-94.0); MEAN CORPUSCULAR HGB 31.4 pg (27.0-31.0); MEAN PLATELET VOLUME 11.3 fl (9.6-12.3); PLATELET COUNT AUTOMATED 184 10*3/uL (130-400); RED CELL DISTRI WIDTH 13.6 % (0-14.5); WHITE BLOOD COUNT 4.6 10*3/uL (4.8-10.8)
[2024-04-08 08:00] VITALS: BP 119/65
[2024-04-08 08:19] LABS: BASOPHILS 2 % (0-1); PLATELET SUFFICIENCY NORMAL (NORMAL); POLYCHROMASIA SLIGHT; TOTAL CELLS COUNTED 100 #CELLS
[2024-04-08] MEDS ORDERED: ASPIRIN, CHEWABLE 81 MG TAB PO SCH (10:00)
[2024-04-08 12:00] VITALS: BP 127/77
[2024-04-08] MEDS ORDERED: SODIUM CHLORIDE Nasal 44 ml bottle NAS PRN (15:30)
[2024-04-08 16:00] VITALS: BP 124/78
[2024-04-08] MEDS ORDERED: Technetium Tc 99M Tetrofosmi 0.23 MG KIT IJ SCH (17:00)
[2024-04-08 20:00] VITALS: BP 120/47
[2024-04-09] VITALS: BP 123/78
[2024-04-09 05:30] LABS: POTASSIUM 4.2 mmol/L (3.4-5.1)
[2024-04-09] MEDS ORDERED: Levothyroxine Sodium 50 MCG TAB PO SCH (06:00)
[2024-04-09 06:11] LABS: BASO % 0.7 % (0.0-1.0); EOS # 0.2 10*3/uL (0.0-0.4); EOS % 3.6 % (1.0-4.0); HEMATOCRIT 35.9 % (42.0-52.0); MEAN CELL VOLUME 94.2 fl (80.0-94.0); MONO # 0.8 10*3/uL (0.1-1.0); MONO % 19.7 % (3.0-9.0); NEUT # 1.7 10*3/uL (2.3-7.9); NEUT % 40.1 % (47.0-73.0); PLATELET COUNT AUTOMATED 177 10*3/uL (130-400); RED BLOOD COUNT 3.81 10*6/uL (4.50-5.90); RED CELL DISTRI WIDTH 13.8 % (0-14.5); WHITE BLOOD COUNT 4.2 10*3/uL (4.8-10.8)
[2024-04-09] MEDS ORDERED: Regadenoson 0.4 MG/5 ML SYR IV ONE (06:47)
[2024-04-09 08:00] VITALS: BP 146/87
[2024-04-09] MEDS ORDERED: Enoxaparin Sodium 40 MG/0.4 ML SYR SC SCH (10:00)
[2024-04-09 11:55] VITALS: BP 139/81
[2024-04-09] MEDS ORDERED: Benzocaine/Menthol 1 LOZ LOZENGE PO PRN (14:00)
[2024-04-09] MEDS ORDERED: Perflutren Protein Type A Mi 2 ML VIAL IV ONE (14:05)
[2024-04-09] MEDS ORDERED: APRESOLINE25 MG PO (14:20)
[2024-04-09] MEDS ORDERED: LEVOTHYROXINE50 MCG PO (14:20)
== END 2024-04-09 15:30 | disposition home or self-care (01) | DRG 243 ==
LOC: ED 11:55 → EDHOLD 13:27 → 4E 13:27
PROVIDERS: Emergency Medicine; ADMIT Family Medicine; ATTEND Family Medicine
PROC: 4A02XM4 Measurement of Cardiac Total Activity, External Approach (ICD-10-PCS; principal; 2024-04-09)
PROC: 3E073KZ Introduction of Other Diagnostic Substance into Coronary Artery, Percutaneous Approach (ICD-10-PCS; 2024-04-09)
DX: K21.9 Gastro-esophageal reflux disease without esophagitis (principal); N17.0 Acute kidney failure with tubular necrosis; I50.33 Acute on chronic diastolic (congestive) heart failure; I69.354 Hemiplegia and hemiparesis following cerebral infarction affecting left non-dominant side; I13.0 Hypertensive heart and chronic kidney disease with heart failure and stage 1 through stage 4 chronic kidney disease, or unspecified chronic kidney disease; I48.91 Unspecified atrial fibrillation; F41.0 Panic disorder [episodic paroxysmal anxiety]; E66.811 Obesity, class 1; E78.5 Hyperlipidemia, unspecified; G43.809 Other migraine, not intractable, without status migrainosus; D64.9 Anemia, unspecified; I25.10 Atherosclerotic heart disease of native coronary artery without angina pectoris; N18.9 Chronic kidney disease, unspecified; I25.2 Old myocardial infarction; Z71.3 Dietary counseling and surveillance; Z88.8 Allergy status to other drugs, medicaments and biological substances; Z82.49 Family history of ischemic heart disease and other diseases of the circulatory system; Z79.899 Other long term (current) drug therapy; Z86.711 Personal history of pulmonary embolism; Z83.3 Family history of diabetes mellitus; Z79.82 Long term (current) use of aspirin; Z68.36 Body mass index [BMI] 36.0-36.9, adult

== ENCOUNTER 2024-10-04 11:51 | Emergency (ER) | payer OTHER ==
[~2024-10-04] VITALS: Ht 167.6 cm; Wt 93.0 kg
[~2024-10-04 11:51] MED LIST changes: +APRESOLINE25 MG PO; +FOSINOPRIL40 MG PO; +LEADER NATUR1000 MCG PO; +LEVOTHYROXINE50 MCG PO; +METOPROLOL SUCC50 M1 PO; +TRAMADOL HCL50 MG PO; +[UNRECOGNIZED DRUG - OTHER] T
[2024-10-04] MEDS ORDERED: LORazepam 1 MG TAB PO ONE (12:10)
[2024-10-04 12:38] LABS: HEMATOCRIT 33.3 % (42.0-52.0); MEAN CELL VOLUME 95.7 fl (80.0-94.0); MEAN CORPUSCULAR HGB 32.5 pg (27.0-31.0); MEAN CORPUSCULAR HGB CONC 33.9 g/dl (33.0-37.0); MEAN PLATELET VOLUME 9.8 fl (9.6-12.3); PLATELET COUNT AUTOMATED 271 10*3/uL (130-400); RED BLOOD COUNT 3.48 10*6/uL (4.50-5.90); WHITE BLOOD COUNT 4.1 10*3/uL (4.8-10.8)
[2024-10-04 12:46] LABS: MANUAL DIFF REFLEX YES
[2024-10-04 12:58] LABS: POTASSIUM 4.1 mmol/L (3.4-5.1)
[2024-10-04 13:05] LABS: BASOPHILS 4 % (0-1); TOTAL CELLS COUNTED 100 #CELLS
[2024-10-04 13:06] LABS: OVALOCYTES FEW; PLATELET SUFFICIENCY NORMAL (NORMAL); POLYCHROMASIA SLIGHT
[2024-10-04] MEDS ORDERED: TRAMADOL HCL50 MG PO (13:14)
== END 2024-10-04 13:28 | disposition home or self-care (01) ==
LOC: ED 11:51
PROVIDERS: Emergency Medicine
DX: R07.89 Other chest pain (principal); I13.0 Hypertensive heart and chronic kidney disease with heart failure and stage 1 through stage 4 chronic kidney disease, or unspecified chronic kidney disease; N18.9 Chronic kidney disease, unspecified; I50.9 Heart failure, unspecified; I25.10 Atherosclerotic heart disease of native coronary artery without angina pectoris; F41.9 Anxiety disorder, unspecified; Z79.82 Long term (current) use of aspirin; Z79.899 Other long term (current) drug therapy; Z88.8 Allergy status to other drugs, medicaments and biological substances; Z98.890 Other specified postprocedural states

== ENCOUNTER → 2025-01-10 | Outpatient (CLI) | payer MEDICARE ==
[~2025-01-10] MED LIST changes: +AMLODIPINE BESY10 MG PO; +ATORVASTATIN CA10 M1 PO; +FUROSEMIDE20 M1 PO; +LEVOTHYROXINE100 MC1 PO; +NATURE'S BLEND F1 MG PO; +VIBRAMYCIN100 MG PO
== END | disposition home or self-care (01) ==
LOC: WOUNDCARE 02:00
PROVIDERS: ATTEND Nurse Practitioner Family
DX: S80.862A Insect bite (nonvenomous), left lower leg, initial encounter (principal); S80.861A Insect bite (nonvenomous), right lower leg, initial encounter; R60.9 Edema, unspecified; L03.90 Cellulitis, unspecified; D53.9 Nutritional anemia, unspecified; I12.9 Hypertensive chronic kidney disease with stage 1 through stage 4 chronic kidney disease, or unspecified chronic kidney disease; E11.22 Type 2 diabetes mellitus with diabetic chronic kidney disease; N18.4 Chronic kidney disease, stage 4 (severe); I25.10 Atherosclerotic heart disease of native coronary artery without angina pectoris; M10.9 Gout, unspecified; E78.5 Hyperlipidemia, unspecified; E11.40 Type 2 diabetes mellitus with diabetic neuropathy, unspecified; F41.9 Anxiety disorder, unspecified; J44.9 Chronic obstructive pulmonary disease, unspecified; Z98.890 Other specified postprocedural states; Z79.899 Other long term (current) drug therapy; W57.XXXA Bitten or stung by nonvenomous insect and other nonvenomous arthropods, initial encounter; Y93.89 Activity, other specified; Y92.89 Other specified places as the place of occurrence of the external cause; Y99.8 Other external cause status

== ENCOUNTER → 2025-01-17 | Outpatient (CLI) | payer MEDICARE | END | disposition home or self-care (01) | LOC: WOUNDCARE 00:47 | PROVIDERS: ATTEND Nurse Practitioner Family | DX: S80.861D Insect bite (nonvenomous), right lower leg, subsequent encounter (principal); E11.622 Type 2 diabetes mellitus with other skin ulcer; L97.822 Non-pressure chronic ulcer of other part of left lower leg with fat layer exposed; L97.812 Non-pressure chronic ulcer of other part of right lower leg with fat layer exposed; R60.0 Localized edema; L03.90 Cellulitis, unspecified; D53.9 Nutritional anemia, unspecified; I12.9 Hypertensive chronic kidney disease with stage 1 through stage 4 chronic kidney disease, or unspecified chronic kidney disease; E11.22 Type 2 diabetes mellitus with diabetic chronic kidney disease; N18.4 Chronic kidney disease, stage 4 (severe); E11.40 Type 2 diabetes mellitus with diabetic neuropathy, unspecified; I25.10 Atherosclerotic heart disease of native coronary artery without angina pectoris; E03.9 Hypothyroidism, unspecified; E78.5 Hyperlipidemia, unspecified; J44.9 Chronic obstructive pulmonary disease, unspecified; M10.9 Gout, unspecified; E66.9 Obesity, unspecified; F41.9 Anxiety disorder, unspecified; Z68.42 Body mass index [BMI] 45.0-49.9, adult; Z95.818 Presence of other cardiac implants and grafts; Z98.890 Other specified postprocedural states; Z79.82 Long term (current) use of aspirin; Z79.899 Other long term (current) drug therapy; W57.XXXD Bitten or stung by nonvenomous insect and other nonvenomous arthropods, subsequent encounter ==

== ENCOUNTER → 2025-01-23 | Outpatient (CLI) | payer MEDICARE | END | disposition home or self-care (01) | LOC: WOUNDCARE 01:31 | PROVIDERS: ATTEND Nurse Practitioner Family | DX: T63.301D Toxic effect of unspecified spider venom, accidental (unintentional), subsequent encounter (principal); E11.622 Type 2 diabetes mellitus with other skin ulcer; L97.822 Non-pressure chronic ulcer of other part of left lower leg with fat layer exposed; L97.812 Non-pressure chronic ulcer of other part of right lower leg with fat layer exposed; E11.22 Type 2 diabetes mellitus with diabetic chronic kidney disease; I12.9 Hypertensive chronic kidney disease with stage 1 through stage 4 chronic kidney disease, or unspecified chronic kidney disease; N18.9 Chronic kidney disease, unspecified; D53.9 Nutritional anemia, unspecified; L03.90 Cellulitis, unspecified; R60.0 Localized edema; E78.5 Hyperlipidemia, unspecified; E03.9 Hypothyroidism, unspecified; E66.9 Obesity, unspecified; E11.40 Type 2 diabetes mellitus with diabetic neuropathy, unspecified; I25.10 Atherosclerotic heart disease of native coronary artery without angina pectoris; J44.9 Chronic obstructive pulmonary disease, unspecified; M10.9 Gout, unspecified; F41.9 Anxiety disorder, unspecified; Z95.818 Presence of other cardiac implants and grafts ==

== ENCOUNTER → 2025-01-30 | Outpatient (CLI) | payer MEDICARE | END | disposition home or self-care (01) | LOC: WOUNDCARE 01:23 | PROVIDERS: ATTEND Nurse Practitioner Family | DX: S80.861D Insect bite (nonvenomous), right lower leg, subsequent encounter (principal); E11.622 Type 2 diabetes mellitus with other skin ulcer; L97.812 Non-pressure chronic ulcer of other part of right lower leg with fat layer exposed; L97.822 Non-pressure chronic ulcer of other part of left lower leg with fat layer exposed; L03.90 Cellulitis, unspecified; I12.9 Hypertensive chronic kidney disease with stage 1 through stage 4 chronic kidney disease, or unspecified chronic kidney disease; E11.22 Type 2 diabetes mellitus with diabetic chronic kidney disease; N18.4 Chronic kidney disease, stage 4 (severe); R60.0 Localized edema; D53.9 Nutritional anemia, unspecified; E11.40 Type 2 diabetes mellitus with diabetic neuropathy, unspecified; I25.10 Atherosclerotic heart disease of native coronary artery without angina pectoris; E78.5 Hyperlipidemia, unspecified; E03.9 Hypothyroidism, unspecified; M10.9 Gout, unspecified; J44.9 Chronic obstructive pulmonary disease, unspecified; E66.9 Obesity, unspecified; F41.9 Anxiety disorder, unspecified; Z68.42 Body mass index [BMI] 45.0-49.9, adult; Z95.818 Presence of other cardiac implants and grafts; Z98.890 Other specified postprocedural states; Z79.82 Long term (current) use of aspirin; Z79.899 Other long term (current) drug therapy; W57.XXXD Bitten or stung by nonvenomous insect and other nonvenomous arthropods, subsequent encounter ==

== ENCOUNTER → 2025-02-05 | Outpatient (CLI) | payer MEDICARE | END | disposition home or self-care (01) | LOC: US 09:08 | PROVIDERS: ATTEND Nurse Practitioner Family | DX: I70.203 Unspecified atherosclerosis of native arteries of extremities, bilateral legs (principal); E11.622 Type 2 diabetes mellitus with other skin ulcer; R60.0 Localized edema; M79.89 Other specified soft tissue disorders; L97.922 Non-pressure chronic ulcer of unspecified part of left lower leg with fat layer exposed; L97.912 Non-pressure chronic ulcer of unspecified part of right lower leg with fat layer exposed ==

== ENCOUNTER → 2025-02-06 | Outpatient (CLI) | payer OTHER | END | disposition home or self-care (01) | LOC: WOUNDCARE 04:49 | PROVIDERS: ATTEND Nurse Practitioner Family | DX: S81.852D Open bite, left lower leg, subsequent encounter (principal); S81.851D Open bite, right lower leg, subsequent encounter; T63.301D Toxic effect of unspecified spider venom, accidental (unintentional), subsequent encounter; E11.622 Type 2 diabetes mellitus with other skin ulcer; L97.822 Non-pressure chronic ulcer of other part of left lower leg with fat layer exposed; L97.812 Non-pressure chronic ulcer of other part of right lower leg with fat layer exposed; L03.90 Cellulitis, unspecified; R60.0 Localized edema; I12.9 Hypertensive chronic kidney disease with stage 1 through stage 4 chronic kidney disease, or unspecified chronic kidney disease; E11.22 Type 2 diabetes mellitus with diabetic chronic kidney disease; N18.4 Chronic kidney disease, stage 4 (severe); D53.9 Nutritional anemia, unspecified; E11.40 Type 2 diabetes mellitus with diabetic neuropathy, unspecified; J44.9 Chronic obstructive pulmonary disease, unspecified; M10.9 Gout, unspecified; F41.9 Anxiety disorder, unspecified; Z98.890 Other specified postprocedural states; Z79.899 Other long term (current) drug therapy; Z79.82 Long term (current) use of aspirin ==

== ENCOUNTER → 2025-02-12 | Outpatient (CLI) | payer OTHER | END | disposition home or self-care (01) | LOC: WOUNDCARE 02:04 | PROVIDERS: ATTEND Nurse Practitioner Family | DX: S80.861D Insect bite (nonvenomous), right lower leg, subsequent encounter (principal); E11.622 Type 2 diabetes mellitus with other skin ulcer; L97.812 Non-pressure chronic ulcer of other part of right lower leg with fat layer exposed; L97.822 Non-pressure chronic ulcer of other part of left lower leg with fat layer exposed; L03.90 Cellulitis, unspecified; R60.0 Localized edema; D53.9 Nutritional anemia, unspecified; I12.9 Hypertensive chronic kidney disease with stage 1 through stage 4 chronic kidney disease, or unspecified chronic kidney disease; E11.22 Type 2 diabetes mellitus with diabetic chronic kidney disease; N18.4 Chronic kidney disease, stage 4 (severe); I25.10 Atherosclerotic heart disease of native coronary artery without angina pectoris; E11.40 Type 2 diabetes mellitus with diabetic neuropathy, unspecified; E03.9 Hypothyroidism, unspecified; E78.5 Hyperlipidemia, unspecified; M10.9 Gout, unspecified; J44.9 Chronic obstructive pulmonary disease, unspecified; E66.9 Obesity, unspecified; F41.9 Anxiety disorder, unspecified; Z68.42 Body mass index [BMI] 45.0-49.9, adult; Z95.818 Presence of other cardiac implants and grafts; Z98.890 Other specified postprocedural states; Z79.899 Other long term (current) drug therapy; Z79.82 Long term (current) use of aspirin; W57.XXXD Bitten or stung by nonvenomous insect and other nonvenomous arthropods, subsequent encounter ==

== ENCOUNTER → 2025-02-22 | Outpatient (CLI) | payer OTHER | LOC: WOUNDCARE 09:00 | PROVIDERS: ATTEND Nurse Practitioner Family | DX: S80.861D Insect bite (nonvenomous), right lower leg, subsequent encounter (principal); E11.622 Type 2 diabetes mellitus with other skin ulcer; L97.822 Non-pressure chronic ulcer of other part of left lower leg with fat layer exposed; L97.812 Non-pressure chronic ulcer of other part of right lower leg with fat layer exposed; L03.90 Cellulitis, unspecified; E11.40 Type 2 diabetes mellitus with diabetic neuropathy, unspecified; R60.0 Localized edema; D53.9 Nutritional anemia, unspecified; I12.9 Hypertensive chronic kidney disease with stage 1 through stage 4 chronic kidney disease, or unspecified chronic kidney disease; E11.22 Type 2 diabetes mellitus with diabetic chronic kidney disease; N18.4 Chronic kidney disease, stage 4 (severe); I25.10 Atherosclerotic heart disease of native coronary artery without angina pectoris; E78.5 Hyperlipidemia, unspecified; E03.9 Hypothyroidism, unspecified; M10.9 Gout, unspecified; J44.9 Chronic obstructive pulmonary disease, unspecified; E66.9 Obesity, unspecified; F41.9 Anxiety disorder, unspecified; Z68.42 Body mass index [BMI] 45.0-49.9, adult; Z95.818 Presence of other cardiac implants and grafts; Z98.890 Other specified postprocedural states; Z79.82 Long term (current) use of aspirin; Z79.899 Other long term (current) drug therapy; W57.XXXD Bitten or stung by nonvenomous insect and other nonvenomous arthropods, subsequent encounter ==